=== PATIENT | female | born 1960 | race African-American/Black ===

== ENCOUNTER 2018-12-21 12:46 | Emergency (ER) | payer OTHER ==
[~2018-12-21] VITALS: Ht 162.6 cm; Wt 129.6 kg
[2018-12-21] MEDS ORDERED: AZIT-12 PO (12:54)
[2018-12-21] MEDS ORDERED: atenelol (12:54)
[2018-12-21] MEDS ORDERED: IBUP-1022 PO (12:54)
[2018-12-21] MEDS ORDERED: ACET160S3 PO (12:54)
[2018-12-21 13:35] LABS: BASO % 0.4 % (0.0-1.0); EOS # 0.1 10^3/uL (0.0-0.5); EOS % 1.1 % (0.0-3.0); HEMATOCRIT 41.8 % (36.0-47.0); HEMOGLOBIN 13.6 g/dl (12.0-15.5); LYMPH # 1.5 10^3/uL (1.5-5.0); LYMPH % 25.8 % (24.0-44.0); MEAN CORPUSCULAR HEMOGLOBIN 30.8 pg (27.0-33.0); MEAN CORPUSCULAR HGB CONC 32.5 g/dl (32.0-36.5); MEAN CORPUSCULAR VOLUME 94.8 fl (80.0-96.0); MONO # 0.8 10^3/uL (0.0-0.8); MONO % 14.6 % (0.0-5.0); NEUTROPHILS # 3.3 10^3/uL (1.5-8.5); NEUTROPHILS % 57.6 % (36.0-66.0); PLATELET COUNT, AUTOMATED 246 10^3/uL (150-450); RED BLOOD COUNT 4.41 10^6/uL (4.00-5.40); WHITE BLOOD COUNT 5.7 10^3/uL (4.0-10.0)
[2018-12-21] MEDS ORDERED: ISOVUE-370 76% 100ML VIAL (Q9967) As Ordered ONE (13:48)
--- NOTE | 2018-12-21 15:14 | REP ---
CT MAXILLOFACIAL WITH IV CONTRAST: CT maxillofacial region performed with the intravenous administration of 100 mL of Isovue-370. Sagittal and coronal reconstruction images are performed. Scattered edema and inflammation is seen in the right facial soft tissues. No abscess collection is seen. The study is somewhat limited due to streak artifact from metallic dental hardware. Normal sized lymph nodes are seen along the carotid and jugular vessels. Airway is patent. There is mild mucosal thickening in the right maxillary sinus. No air fluid levels are seen in the paranasal sinuses. The globes are intact. IMPRESSION: Somewhat limited exam due to streak artifact from metallic dental hardware. No definite abscess collection. There is edema/inflammation in the right facial soft tissues. Mild mucosal thickening right maxillary sinus. Electronically Signed by Sarath Bailon MD 12/22/2018 10:23 A
[2018-12-21 16:11] VITALS: BP 181/77
[2018-12-21] MEDS ORDERED: NORC1TAB7 PO (16:18)
== END 2018-12-21 16:22 | disposition home or self-care (01) ==
LOC: M ED 12:46
DX: K02.9 Dental caries, unspecified (principal); K04.7 Periapical abscess without sinus; I10 Essential (primary) hypertension; Z79.899 Other long term (current) drug therapy; Z88.0 Allergy status to penicillin
CPT/HCPCS: 36415; 70487; 80047; 85025; 99284; Q9967